=== PATIENT | male | born 1955 | race African-American/Black ===

== ENCOUNTER 2020-06-10 19:19 | Emergency (ER) | payer BC ==
[~2020-06-10] VITALS: Ht 180.3 cm; Wt 132.0 kg
[2020-06-10 19:51] VITALS: BP 149/90
== END 2020-06-10 23:30 | disposition home or self-care (01) ==
LOC: ER 19:19
DX: S83.004A Unspecified dislocation of right patella, initial encounter (principal); W50.0XXA Accidental hit or strike by another person, initial encounter; Y93.89 Activity, other specified; Y92.89 Other specified places as the place of occurrence of the external cause; Y99.8 Other external cause status
CPT/HCPCS: 73560; 99283; L1830